=== PATIENT | male | born 1945 | race Caucasian/White ===

== ENCOUNTER 2017-11-02 23:12 | Observation (INO) | payer OTHER, BC ==
--- OUTSIDE RECORDS SUMMARY | 2017-11-02 23:15 | XMS REPORT | Clinical Summary ---
:1945 Author Organization [facility] Address [address] [place] [address] Care Team Providers Name Role Phone Cayden Myers MD Primary Care Provider Allergies No Known Allergies Current Medications Prescription Sig. Disp. Refills Start Date End Date Status lisinopril TK T PO 0 03/13/2016 Active (PRINIVIL,ZESTRIL) 10 BID. MG tablet multivitamin with Take 1 Active minerals tablet tablet by mouth daily. ascorbic acid, vitamin Take 1,000 Active C, (vitamin C) 1000 MG mg by mouth tablet daily. metoprolol succinate XL TK 1 T PO D 1 07/28/2016 Active (TOPROL-XL) 25 mg 24 hr tablet cholecalciferol, Take 2,000 Active vitamin D3, (VITAMIN Units by D3) 2,000 unit capsule mouth daily. capsule aspirin (ECOTRIN) 81 MG Take 81 mg Active enteric coated tablet by mouth daily. predniSONE (DELTASONE) Take 1 30 tablet 2 09/09/2017 Active 10 mg tablet tablet (10 8 mg total) by mouth daily for 90 days. methotrexate 2.5 MG Take 8 96 tablet 0 09/09/2017 Active tablet tablets (20 9 mg total) by mouth once a week. fluticasone (FLONASE) 2 sprays 16 g 3 10/13/2017 Active 50 mcg/actuation nasal (100 mcg 9 spray total) by Each Nare route daily. montelukast (SINGULAIR) Take 10 mg Active 10 mg tablet by mouth nightly. folic acid (FOLVITE) 1 Take 1 90 tablet 1 04/30/2016 MG tablet tablet (1 mg 7 total) by mouth daily. methotrexate 2.5 MG Take 8 24 tablet 5 10/01/2016 Discontinued tablet tablets (20 7 mg total) by mouth once a week. hydroxychloroquine Take 1 60 tablet 2 10/01/2016 Discontinued (PLAQUENIL) 200 mg tablet (200 7 tablet mg total) by mouth 2 (two) times a day for 90 days. hydroxychloroquine TAKE 1 60 tablet 2 12/18/2016 Discontinued (PLAQUENIL) 200 mg TABLET(200 7 tablet MG) BY MOUTH TWICE DAILY methotrexate 2.5 MG TAKE 8 24 tablet 0 02/12/2017 Discontinued tablet TABLETS BY 7 MOUTH ONCE A WEEK methotrexate 2.5 MG TAKE 8 24 tablet 5 03/05/2017 Discontinued tablet TABLETS BY 7 MOUTH ONCE A WEEK hydroxychloroquine TAKE 1 60 tablet 2 03/12/2017 Discontinued (PLAQUENIL) 200 mg TABLET(200 7 tablet MG) BY MOUTH TWICE DAILY hydroxychloroquine TAKE 1 60 tablet 2 06/12/2017 Discontinued (PLAQUENIL) 200 mg TABLET(200 8 tablet MG) BY MOUTH TWICE DAILY methotrexate 2.5 MG TAKE 8 24 tablet 1 07/11/2017 Discontinued tablet TABLETS BY 8 MOUTH ONCE A WEEK methotrexate 2.5 MG TAKE 8 24 tablet 0 08/20/2017 Discontinued tablet TABLETS BY 8 MOUTH ONCE A WEEK FLUVIRIN [id number] ADM 0.5ML IM 0 08/09/2017 Discontinued mcg (15 mcg x 3)/0.5 mL UTD 8 suspension PREVNAR 13, PF, 0.5 mL ADM 0.5ML IM 0 08/09/2017 Discontinued vaccine UTD 8 methotrexate 2.5 MG TAKE 8 32 tablet 1 09/11/2017 Discontinued tablet TABLETS BY 8 MOUTH ONCE A WEEK Active Problems Problem Noted Date Rheumatoid arthritis of multiple sites with negative rheumatoid factor 2015 Follow-up examination following treatment with high-risk medication 06/25/2016 Arthritis Hypertension Obesity HL (hearing loss) Encounters Date Type Specialty Care Team Description 10/30/2017 Infusion Rheumatology Olive Urbano Rheumatoid arthritis of MD Nini multiple sites with negative rheumatoid factor (Primary Dx) 10/30/2017 Orders Only Rheumatology Olive Urbano MD 10/27/2017 Orders Only Rheumatology Olive Urbano MD 10/13/2017 Telephone Rheumatology [place], [place] 10/02/2017 Infusion Rheumatology Olive Urbano Rheumatoid arthritis rei Terrazas MD multiple sites with negative rheumatoid factor (Primary Dx) 09/18/2017 Infusion Rheumatology Olive Urbano Rheumatoid arthritis rei Terrazas MD multiple sites with negative rheumatoid factor (Primary Dx) 09/11/2017 Refill Rheumatology Oliev Urbano MD 09/09/2017 Office Visit Rheumatology Olive Urbano Rheumatoid arthritis of multiple sites with negative rheumatoid factor (Primary Dx); MD Nini Follow-up examination following treatment with high-risk medication; Essential hypertension; Proteinuria, unspecified type 09/09/2017 Lab Lab Ari Chavez, Essential hypertension, malignant ( Primary Dx); Shortness of breath 09/09/2017 Orders Only Rheumatology Olive Urbano MD 09/09/2017 Refill Rheumatology [place], [place] 09/09/2017 Orders Only Rheumatology Jae Toro [place] Rheumatoid arthritis of multiple sites without rheumatoid factor (Primary Dx) 08/20/2017 Refill Rheumatology Oilve Urbano MD 07/11/2017 Refill Rheumatology Olive Urbano MD 06/12/2017 Refill Rheumatology Olive Urbano MD 03/11/2017 Refill Rheumatology Olive Urbano MD 03/05/2017 Refill Rheumatology Olive Urbano MD 02/25/2017 Office Visit Rheumatology Olive Urbano Rheumatoid arthritis of multiple sites with negative rheumatoid factor (Primary Dx); MD Nini Essential hypertension; Follow-up examination following treatment with high-risk medication 02/12/2017 Refill Rheumatology Olive Urbano MD 12/18/2016 Refill Rheumatology Olive Urbano MD after 11/01/2016 Family History Medical History Relation Name Comments Rheum arthritis Father Clotting disorder Mother Mary Kidney disease Mother Mary Cancer Sister Clotting disorder Sister No Known Problems Sister Rheum arthritis Sister Arthritis Sister Osiris Cancer Sister Ashley Relation Name Status Comments Father Mother Mary Sister (Age 55) breast cancer Sister Alive Sister Alive Sister Osiris Sister Ashley Social History Tobacco Use Types Packs/Day Years Used Date Former Smoker Cigarettes 2 20 04/11/1964 - 2000 Smokeless Tobacco: Never Used Alcohol Use Drinks/Week oz/Week Comments Yes 3 Glasses of wine 0.6 social Sex Assigned at Date Recorded Not on file Last Filed Vital Signs Vital Sign Reading Time Taken Blood Pressure 123/63 10/30/2017 4:04 PM CDT Pulse 69 10/30/2017 4:04 PM CDT Temperature 36.7 C (98.1 F) 10/30/2017 4:04 PM CDT Respiratory Rate 18 10/30/2017 4:04 PM CDT Oxygen Saturation 98% 10/30/2017 1:05 PM CDT Inhaled Oxygen Concentration - - Weight 108 kg (238 lb) 10/30/2017 12:58 PM CDT Height 177.8 cm (5' 10") 09/18/2017 12:51 PM [employer] Body Mass Index 34.15 10/30/2017 12:58 PM CDT Plan of Treatment Date Type Specialty Care Team Description 12/11/2017 [place] [address] [address] Health Maintenance Due Date Last Done Comments COLONOSCOPY 1996 ZOSTER VACCINE 2006 PNEUMOCOCCAL POLYSACCHARIDE VACCINE AGE 65 AND OVER 2011 PNEUMOCOCCAL-13 2011 INFLUENZA VACCINE 03/11/2017 Results TB GOLD Quantiferon (09/09/2017 3:15 PM) Component Value Ref Range Quantiferon TB gold incubated Incubated, [facility] [place], [place] for completion of the assay. Specimen Performing Laboratory Blood [facility] Narrative Performed at:[address] [place], [place] [id number] Dining Room Hostess: Richard Salas MD, Phone:[phone] TB QuantiFERON In Tube (09/09/2017 3:15 PM) Component Value Ref Range Quantiferon TB gold Negative Negative Quantiferon criteria Comment Comment: To be considered positive a specimen should have a TB Ag minus Nil value greater than or equal to 0.35 IU/mL and in addition the TB Ag minus Nil value must be greater than or equal to 25% of the Nil value. There may be insufficient information in these values to differentiate between some negative and some indeterminate test values. Quantiferon TB Ag value 0.02 IU/mL Quantiferon NIL value 0.03 IU/mL Quantiferon mitogen value 7.92 IU/mL Quantiferon TB Ag minus NIL value <0.00 IU/mL Interpretation Comment Comment: The QuantiFERON TB Gold (in Tube) assay is intended for use as an aid in the diagnosis of TB infection. Negative results suggest that there is no TB infection. In patients with high suspicion of exposure, a negative test should be repeated. A positive test indicates infection with Mycobacterium tuberculosis. Among individuals without tuberculosis infection, a positive test may be due to exposure to M. kansasii, M. szulgai or M. marinum. On the Internet, go to cdc.gov/tb for further details. Specimen Performing Laboratory [facility] Narrative Performed at:[id number] Dining Room Hostess: Jae Wells MD, Phone:[phone] Vectra(R) DA Disease Activity (09/09/2017 3:03 PM) Component Value Ref Range Vectra(R) DA score 39Comment: Report Status: Final Unadjusted Score 44 Test description Comment Comment: Vectra DA measures the concentrations of 12 serum proteins. An algorithm is applied to these concentrations to calculate a quantitative disease activity score ranging from 1 to 100. Test results are intended to aid in the assessment of disease activity in patients with rheumatoid arthritis (RA) when used in conjunction with standard clinical assessment. This test is not intended or validated to diagnose RA. As of July 14, 2017 the Vectra DA score is adjusted based on the age, gender and adiposity of the patient. The unadjusted score is provided for historical comparison. The Vectra DA test is intended for clinical use. [facility]. developed Vectra DA and determined its performance characteristics. The [facility] is certified under the Clinical Laboratory Improvement Amendments of 1988 (CLIA) as qualified to perform high complexity clinical testing and is a [employer] Accredited Laboratory. Unit Aide: Barry Mancini MD; Anne Persaud MD,AP([facility] CLIA No. [id number] Rev L Vectra(R) DA level Moderate Comment: Vectra DA Disease Activity Levels: High: 45 to 100 Moderate: 30 to 44 Low: 1 to 29 Clinical validation Comment Comment: Vectra DA was validated in adults with RA, 230 who previously tested positive for rheumatoid factor (RF) and/or antibodies to cyclic citrullinated peptide (anti-CCP) and 141 who tested negative for both RF and anti-CCP. The performance of the test may differ between these two populations. (Bernardo et al. Arthritis Care Res.2012; 64 (12):5322-2520). The Vectra DA disease activity thresholds shown on the first page of this report reflect the Vectra DA score equivalents to [id number] cut-offs of 2.67 (low to moderate) and 4.09 (moderate to high), respectively (Inoue et al. Michelle. Rheum Dis 2007;66: 407-409), and were calculated by converting the DAS28 scale (0-9.4) to the Vectra DA scale (1 to 100). The Minimally Important Difference (MID) for Vectra DA is the smallest absolute change in score that is likely to reflect change in disease activity. The MID for patients with moderate or high Vectra DA scores is 7.6. As of July 14, 2017 the Vectra DA score is adjusted based on the age, gender and adiposity of the patient. The unadjusted score is provided for historical comparison. Please note: The individual biomarker results, which are expressed to two significant figures, are required inputs into the algorithm used to calculate the Vectra DA Score. Clinical interpretation of individual biomarker levels, which have different weights in the Vectra DA algorithm, has not been established. ZORAIDA result 2.6Comment: RA Range: (0.29-85) ug/mL CRP result 3.2Comment: RA Range: (0.19-92) mg/L VCAM-1 result 0.88Comment: RA Range: (0.39-1.2) ug/mL IL-6 result 21Comment: RA Range: (2.5-200) pg/mL TNF-RI result 2.0Comment: RA Range: (0.8-3.9) ng/mL EGF result 93 pg/mL Comment: RA Range: (12-410) Inversely correlated with disease activity VEGF-A result 200Comment: RA Range: (75-790) pg/mL Leptin result 23Comment: RA Range: (1.5-120) ng/mL Resistin result 6.2Comment: RA Range: (3.5-21) ng/mL MMP-1 result 10Comment: RA Range: (1.3-23) ng/mL MMP-3 result 27Comment: RA Range: (7.9-160) ng/mL YKL-40 result 100Comment: RA Range: (22-540) ng/mL Footnote Comment Comment: RA Range: These 95% reference ranges were established from 325,781 patient samples tested at [facility]. Complete Vectra DA Score History: Collection Date: Score: 55 (unadjusted)* Collection Date: Score: 39 Vectra(R) DA PDF . Specimen Performing Laboratory [facility] Narrative Performed at:[facility] [address] [place], [place] [id number] Dining Room Hostess: Barry Mancini MD, Phone:[phone] CBC with platelet and differential (09/09/2017 3:03 PM)Only the most recent of2 resultswithin the time period is included. Component Value Ref Range WBC 6.0 3.4 - 10.8 x10E3/uL RBC 3.83 (L) 4.14 - 5.80 x10E6/uL HGB 13.0 13.0 - 17.7 g/dL HCT 37.4 (L) 37.5 - 51.0 % MCV 98 (H) 79 - 97 fL MCH 33.9 (H) 26.6 - 33.0 pg MCHC 34.8 31.5 - 35.7 g/dL RDW 14.0 12.3 - 15.4 % Platelet count 238 150 - 379 x10E3/uL Neutrophils 61 Not Estab. % Lymphocytes 22 Not Estab. % Monocytes 10 Not Estab. % Eosinophils 6 Not Estab. % Basophils 1 Not Estab. % Neutrophils, absolute 3.7 1.4 - 7.0 x10E3/uL Lymphocytes, absolute 1.3 0.7 - 3.1 x10E3/uL Monocytes, absolute 0.6 0.1 - 0.9 x10E3/uL Eosinophils, absolute 0.3 0.0 - 0.4 x10E3/uL Basophils, absolute 0.0 0.0 - 0.2 x10E3/uL Immature granulocytes 0 Not Estab. % Immature grans (abs) 0.0 0.0 - 0.1 x10E3/uL Specimen Performing Laboratory [facility] Narrative Performed at:01 - [id number] Dining Room Hostess: Richard Salas MD, Phone:[phone] Creatine kinase, total (CPK) (09/09/2017 3:03 PM) Component Value Ref Range Creatine kinase 75 24 - 204 U/L Specimen Performing Laboratory [facility] Narrative Performed at: [id number] Dining Room Hostess: Richard Salas MD, Phone:[phone] Estimated GFR (09/09/2017 9:55 AM) Component Value Ref Range GFR Non Af Amer 66 mL/min/1.73 m2 GFR Af Amer 80 mL/min/1.73 m2 Comment: Chronic kidney disease: <60 mL/min/1.73m2 Kidney failure: <15 mL/min/1.73m2 The estimated GFR is calculated from the IDMS-traceable Modification of Diet in Renal Disease Equation. The accuracy of the calculation is poor when the creatinine is normal. Calculated values >90 mL/min/1.73m2 are not reported. This equation has not been validated in children (<18 years), women, the elderly (>70 years), or ethnic groups other than Caucasians and Americans. Specimen Performing Laboratory Plasma specimen [facility]PART[facility] OF PATHOLOGY [facility] GENOMIC MEDICINE [address] [place] [id number] Hemoglobin A1c (09/09/2017 9:55 AM) Component Value Ref Range Hemoglobin A1C 5.5 4.0 - 6.0 % Comment: Less than 6% - Goal of therapy for Type II Diabetes Less than 7%-Goal of therapy for Type I Diabetes Less than 8%-Acceptable control for Type I or Type II Diabetes Greater than 8%-Unacceptable control; action indicated. (ADA94) Specimen Performing Laboratory Blood [facility] OF PATHOLOGY AND GENOMIC MEDICINE [address] [place] [address] Lipid panel (09/09/2017 9:55 AM) Component Value Ref Range Cholesterol 171 0 - 199 mg/dL Triglycerides 196 (H) 0 - 149 mg/dL HDL cholesterol 42 40 - 99,999 mg/dL LDL cholesterol 99 0 - 99 mg/dL Lipid panel interpretation See below Comment: Total Cholesterol (mg/dL) <200 Desirable [id number] >=240High Triglycerides (mg/dL) <150 Normal [id number] 200-499High >=500Very high HDL Cholesterol (mg/dL) <40Low (male) <50Low (female) LDL Cholesterol (mg/dL) <100 Optimal 100-129Near or above optimal [phone]-fvyt 160-189High >=190Very high Risk Catergories that modify LDL goals. Risk CatergoriesLDL goal (mg/dL) CHD and CHD risk equivalent<100 (10-year risk >20%) Multiple (2+) risk factors <130 (10-year risk=<20%) 0-1 risk factors <160 (<10-year risk) Defining levels of lipids in metabolic syndrome Triglycerides>=150 mg/dL HDL Cholesterol Men<40 mg/dL Women<50 mg/dL Non-HDL cholesterol is a second target for therapy in persons with high triglycerides (>=200 mg/dL) Specimen Performing Laboratory Plasma specimen [facility] OF PATHOLOGY AND GENOMIC MEDICINE [address] [place] [address] Comprehensive metabolic panel (09/09/2017 9:55 AM)Only the most recent of2 resultswithin the time period is included. Component Value Ref Range Sodium 141 135 - 148 mEq/L Potassium 4.4 3.5 - 5.0 mEq/L Chloride 109 98 - 112 mEq/L CO2 27 24 - 31 mEq/L Anion gap 5 (L) 7 - 15 mEq/L Comment: Starting from November , anion gap calculation no longer incorporates potassium. Please note the change. BUN 15 8 - 23 mg/dL Creatinine 1.1 0.7 - 1.2 mg/dL Glucose 92 65 - 99 mg/dL Calcium 9.2 8.8 - 10.2 mg/dL Protein 6.8 6.3 - 8.3 g/dL Albumin 4.3 3.5 - 5.0 g/dL A/G ratio 1.7 0.7 - 3.8 Alkaline phosphatase 72 40 - 129 U/L AST 22 10 - 50 U/L ALT 18 5 - 50 U/L Total bilirubin 0.5 0.2 - 1.2 mg/dL Specimen Performing Laboratory Plasma specimen [facility]PART[facility] OF PATHOLOGY AND GENOMIC MEDICINE [address] [place] [id number] Sedimentation rate (02/25/2017 2:14 PM) Component Value Ref Range Sedimentation rate 3 0 - 30 mm/hr Specimen Performing Laboratory Blood [facility] Narrative Performed at: - [id number] Dining Room Hostess: Richard Salas MD, Phone:[phone] C-reactive protein (02/25/2017 2:14 PM) Component Value Ref Range CRP 2.0 0.0 - 4.9 mg/L Specimen Performing Laboratory Blood [facility] Narrative Performed at:[id number] Dining Room Hostess: Richard Salas MD, Phone:[phone] after 11/01/2016 Insurance Payer Benefit Plan / Group Subscriber ID Type Phone Address MEDICARE MEDICARE PART A AND B xxxxxxxxxx Medicare [place], [place] BCBS BCBS CHOICE PPO/[employer] PPO xxxxxxxxxxxx PPO [phone] [id number]
[2017-11-03 00:03] LABS: Absolute Lymphocytes (CBC) 1.1 K/uL (0.7-4.9); Absolute Monocytes 0.9 K/uL (0.1-1.3); Absolute Neutrophil 4.5 K/uL (1.8-8.0); Basophils % 0.3 % (0-1.3); Eosinophils % 1.1 % (0-4.4); Hematocrit 38.3 % (39.6-49.0); Lymphocytes % 16.8 % (15.3-44.8); MCH 34.3 pg (27.0-35.0); MCV 99.6 fL (80-100); MPV 7.4 fL (7.6-11.3); Monocytes % 13.8 % (3.3-12.3); RBC Red Blood Cell Count 3.85 M/uL (4.33-5.43)
[2017-11-03 00:05] LABS: Protime INR 0.98
[2017-11-03] MEDS ORDERED: ONDANSETRON 4 MG/2 ML VIAL ONE (00:09)
[2017-11-03 00:16] LABS: Potassium 3.5 mEq/L (3.6-5.0)
[2017-11-03 00:22] LABS: CKMB Creatine Kinase MB 1.7 ng/ml (0.3-4.0)
[2017-11-03 00:23] LABS: Albumin 3.9 g/dL (3.2-5.5); Bilirubin Direct 0.1 mg/dL (0-0.2); Bilirubin Total 0.6 mg/dL (0.3-1.2); Protein, Total 6.4 g/dL (6.0-8.3)
[2017-11-03] MEDS ORDERED: MECLIZINE HCL 12.5 MG TAB ONE (00:28)
[2017-11-03] MEDS ORDERED: NA CHLORIDE 0.9% 1,000 ML ONE (00:29)
--- NOTE | 2017-11-03 00:55 | EDPHYS ---
Physician Documentation [facility] Name: Adrien Amaya Age: 72 yrs Sex: Male : 1945 Arrival Date: 11/02/2017 Time: 23:16 Bed 4 Private MD: ED Physician Michael Tee HPI: 11/03 00:42 This 72 yrs old Male presents to ER via Wheelchair with complaints of pkl Dizziness, Nausea. 00:42 The patient presents with dizziness, feeling off balance. Onset: The symptoms/episode pkl began/occurred just prior to arrival, 1 hour(s) ago. Associated signs and symptoms: Pertinent positives: headache. Historical: - Allergies: 11/02 23: No Known Allergies; fc - Home Meds: 23:26 Remicade 100 mg intravenous solr [Active]; multivitamin oral tab daily [Active]; fc Vitamin D Oral 2000 unit daily [Active]; prednisone 10 mg Oral tab once daily [Active]; loratadine 10 mg oral tab 1 tab once daily [Active]; fluticasone 50 mcg/actuation nasal spsn 1 spray 2 times per day [Active]; Singulair 10 mg Oral tab 1 tab once daily [Active]; - PMHx: 23:26 Rheumatoid Arthritis; Hypertension; fc - PSHx: 23:26 Knee surgery; ankle surg; Appendectomy; fc - Immunization history:: Last tetanus immunization: up to date Flu vaccine is up to date. - Social history:: Smoking status: Patient/guardian denies using tobacco, Patient uses alcohol, occasionally. ROS: 11/03 00:42 Eyes: Negative for injury, pain, redness, and discharge, ENT: Negative for injury, pkl pain, and discharge, Neck: Negative for injury, pain, and swelling, Cardiovascular: Negative for chest pain, palpitations, and edema, Respiratory: Negative for shortness of breath, cough, wheezing, and pleuritic chest pain, Abdomen/GI: Negative for abdominal pain, nausea, vomiting, diarrhea, and constipation, Back: Negative for injury and pain, : Negative for injury, bleeding, discharge, and swelling, MS/Extremity: Negative for injury and deformity, Skin: Negative for injury, rash, and discoloration. Neuro: Positive for gait disturbance, headache. Exam: 00:42 Head/Face: Normocephalic, atraumatic. Eyes: Pupils equal round and reactive to light, pkl extra-ocular motions intact. Lids and lashes normal. Conjunctiva and sclera are non-icteric and not injected. Cornea within normal limits. Periorbital areas with no swelling, redness, or edema. ENT: Nares patent. No nasal discharge, no septal abnormalities noted. Tympanic membranes are normal and external auditory canals are clear. Oropharynx with no redness, swelling, or masses, exudates, or evidence of obstruction, uvula midline. Mucous membranes moist. Neck: Trachea midline, no thyromegaly or masses palpated, and no cervical lymphadenopathy. Supple, full range of motion without nuchal rigidity, or vertebral point tenderness. No Meningismus. Chest/axilla: Normal chest wall appearance and motion. Nontender with no deformity. No lesions are appreciated. Cardiovascular: Regular rate and rhythm with a normal S1 and S2. No gallops, murmurs, or rubs. Normal PMI, no JVD. No pulse deficits. Respiratory: Lungs have equal breath sounds bilaterally, clear to auscultation and percussion. No rales, rhonchi or wheezes noted. No increased work of breathing, no retractions or nasal flaring. Abdomen/GI: Soft, non-tender, with normal bowel sounds. No distension or tympany. No guarding or rebound. No evidence of tenderness throughout. Back: No spinal tenderness. No costovertebral tenderness. Full range of motion. Skin: Warm, dry with normal turgor. Normal color with no rashes, no lesions, and no evidence of cellulitis. MS/ Extremity: Pulses equal, no cyanosis. Neurovascular intact. Full, normal range of motion. 00:42 Neuro: Orientation: is normal, Mentation: is normal, Cranial nerves: grossly normal, Cerebellar function: normal finger to nose testing, heel to mckinley testing is normal, Motor: is normal, Gait: is unsteady. Vital Signs: 11/02 23:13 BP 158 / 87; Pulse 75; Resp 20; Pulse Ox 96% on R/A; Weight 108.86 kg (R); Height 5 ft. fc 10 in. (177.80 cm) (R); Pain 5/10; 23:55 BP 142 / 77; Pulse 73; Resp 18; Pulse Ox 98% on R/A; mt 11/03 00:30 BP 150 / 85; Pulse 72; Resp 24; Pulse Ox 95% on R/A; Pain 0/10; ao 02:08 BP 144 / 77; Pulse 72; Resp 20; Pulse Ox 98% on R/A; mt 11/02 23:13 Body Mass Index 34.44 (108.86 kg, 177.80 cm) MDM: 00:52 Data reviewed: vital signs, nurses notes, lab test result(s), EKG, radiologic studies, pkl CT scan, plain films. 00:54 Patient medically screened. pkl 11/02 23:31 Order name: glucometer results - FOR PT WITH NO ID 11/02 23:37 Order name: Glucose, Ancillary Testing; Complete Time: 00:47 EDMS 11/02 23:40 Order name: Basic Metabolic Panel 11/02 23:40 Order name: BNP 11/02 23:40 Order name: CBC with Diff 11/02 23:40 Order name: Ckmb 11/02 23:40 Order name: CPK 11/02 23:40 Order name: LFT's 11/02 23:40 Order name: Magnesium 11/02 23:40 Order name: PT-INR 11/02 23:40 Order name: Ptt, Activated 11/02 23:40 Order name: Troponin (emerg Dept Use Only) 11/03 00:04 Order name: CBC with Automated Diff; Complete Time: 00:47 EDMS 11/03 00:11 Order name: Protime (+INR); Complete Time: 00:47 EDMS 11/02 23:40 Order name: XRAY Chest (1 view) 11/02 23:40 Order name: EKG; Complete Time: 23:40 11/02 23:40 Order name: Cardiac monitoring; Complete Time: 23:44 11/02 23:40 Order name: EKG - Nurse/Tech; Complete Time: 23:44 11/02 23:40 Order name: CT Head Brain wo Cont 11/03 00:11 Order name: PTT, Activated Partial Thromb; Complete Time: 00:47 EDMS 11/03 00:17 Order name: Basic Metabolic Panel; Complete Time: 00:47 EDMS 11/03 00:18 Order name: Troponin (Emerg Dept Use Only); Complete Time: 00:47 EDMS 11/03 00:21 Order name: BNP B-Type Natriuretic Peptide; Complete Time: 00:47 EDGA 11/03 00:22 Order name: CKMB Creatine Kinase MB; Complete Time: 00:47 EDGA 11/03 00:23 Order name: Liver (Hepatic) Function; Complete Time: 00:47 EDGA 11/03 00:23 Order name: Creatine Phosphokinase; Complete Time: 00:47 EDGA 11/03 00:23 Order name: Magnesium; Complete Time: 00:47 [facility] 11/02 23:40 Order name: IV Saline Lock; Complete Time: 23:44 11/02 23:40 Order name: Labs collected and sent; Complete Time: 23:45 11/02 23:40 Order name: O2 Per Protocol; Complete Time: 23:44 11/02 23:40 Order name: O2 Sat Monitoring; Complete Time: 23:45 kl Administered Medications: 00:07 Drug: Zofran 4 mg Route: IVP; Site: left antecubital; ao 00:20 Follow up: Response: No adverse reaction ao 00:15 Drug: NS 0.9% 1000 ml Route: IV; Rate: 100 ml/hr; Site: left antecubital; ao 00:50 Follow up: IV Status: Order to discontinue infusion ao 00:15 Drug: Antivert 50 mg Route: PO; ao 00:20 Follow up: Response: No adverse reaction ao Point of Care Testing: Blood Glucose: 11/02 23:15 Blood Glucose: 131 mg/dL; fc Ranges: Critical Glucose Levels:Adult <50 mg/dl or >400 mg/dl <40 mg/dl or >180 mg/dl Disposition: 11/03/17 00:54 Hospitalization ordered by Leann Garza for Observation. Preliminary diagnosis is Dizziness. Acute headache. Unsteady gait. - Bed requested for Telemetry/MedSurg (observation). - Status is Observation. ao - Condition is Stable. - Problem is new. - Symptoms are unchanged. UTI on Admission? No Signatures: Dispatcher [employer] Chanel Smalls RN RN kl Lam, Pin, MD MD pkl Chretien, Felicia, RN RN fc Ortiz, Alex, RN RN ao
--- NOTE | 2017-11-03 00:55 | ER ---
Nurse's Notes [facility] Name: Adrien Amaya Age: 72 yrs Sex: Male : 1945 Arrival Date: 11/02/2017 Time: 23:16 Bed 4 Private MD: Diagnosis: Dizziness. Acute headache. Unsteady gait Presentation: 11/02 23:13 Presenting complaint: Patient states: that he has a right sided headache, is weak, fc dizzy and nauseated. 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 States he feels as if he is in a tunnel. No ext weakness or facial drooping noted. Transition of care: patient was not received from another setting of care. Onset of symptoms was November 02, 2017 at 22:15. Care prior to arrival: None. 23:13 Method Of Arrival: Wheelchair 23:13 Acuity: HAYLEY 3 Triage Assessment: 23:43 General: Appears in no apparent distress. comfortable, Behavior is calm, cooperative, ao appropriate for age, Reports fatigue for. GI: Reports nausea. Historical: - Allergies: 23:26 No Known Allergies; - Home Meds: 23:26 Remicade 100 mg intravenous solr [Active]; multivitamin oral tab daily [Active]; Vitamin D Oral 2000 unit daily [Active]; prednisone 10 mg Oral tab once daily [Active]; loratadine 10 mg oral tab 1 tab once daily [Active]; fluticasone 50 mcg/actuation nasal spsn 1 spray 2 times per day [Active]; Singulair 10 mg Oral tab 1 tab once daily [Active]; - PMHx: 23:26 Rheumatoid Arthritis; Hypertension; fc - PSHx: 23:26 Knee surgery; ankle surg; Appendectomy; fc - Immunization history:: Last tetanus immunization: up to date Flu vaccine is up to date. - Social history:: Smoking status: Patient/guardian denies using tobacco, Patient uses alcohol, occasionally. Screenin:13 Abuse screen: Denies threats or abuse. Nutritional screening: No deficits noted. Tuberculosis screening: No symptoms or risk factors identified. Fall Risk None identified. Assessment: 23:30 General: Appears in no apparent distress. comfortable, Behavior is calm, cooperative, ao appropriate for age. Pain: Denies pain. Neuro: Level of Consciousness is awake, alert, obeys commands, Oriented to person, place, time, situation, Appropriate for age Geopolitics Teacher are equal bilaterally Moves all extremities. Gait is steady, Speech is normal, Facial symmetry appears normal, Pupils are PERRLA. Cardiovascular: Capillary refill < 3 seconds Patient's skin is warm and dry. Respiratory: Airway is patent Trachea midline Respiratory effort is even, unlabored, Respiratory pattern is regular, symmetrical, Breath sounds are clear bilaterally. GI: Abdomen is non-distended, Bowel sounds present X 4 quads. : No signs and/or symptoms were reported regarding the genitourinary system. EENT: No signs and/or symptoms were reported regarding the EENT system. Derm: No signs and/or symptoms reported regarding the dermatologic system. Musculoskeletal: Range of motion:. 11/03 00:30 Reassessment: Patient appears in no apparent distress at this time. No changes from ao previously documented assessment. Patient and/or family updated on plan of care and expected duration. Pain level reassessed. Patient is alert, oriented x 3, equal unlabored respirations, skin warm/dry/pink. Patient back from CT. waiting on Ct report. 00:53 Reassessment: At bedside getting patient to ambulate for the second time. Patient ao still weak and unable to ambulate. Dr Tee will admit patient to the hospital. 01:50 Reassessment: Patient appears in no apparent distress at this time. Patient and/or ao family updated on plan of care and expected duration. Pain level reassessed. Patient is alert, oriented x 3, equal unlabored respirations, skin warm/dry/pink. Patient to be admitted. waiting on Dr Hassan admission orders. 02:30 Reassessment: Report called to JACQUELINE Oneill. Nurse stated she will come and get patient. ao Vital Signs: 11/02 23:13 BP 158 / 87; Pulse 75; Resp 20; Pulse Ox 96% on R/A; Weight 108.86 kg (R); Height 5 ft. fc 10 in. (177.80 cm) (R); Pain 5/10; 23:55 BP 142 / 77; Pulse 73; Resp 18; Pulse Ox 98% on R/A; mt 11/03 00:30 BP 150 / 85; Pulse 72; Resp 24; Pulse Ox 95% on R/A; Pain 0/10; ao 02:08 BP 144 / 77; Pulse 72; Resp 20; Pulse Ox 98% on R/A; mt 11/02 23:13 Body Mass Index 34.44 (108.86 kg, 177.80 cm) fc ED Course: 11/02 23:13 No provider procedures requiring assistance completed. fc 23:13 Arm band placed on Patient placed in an exam room, on a stretcher. fc 23:13 Patient has correct armband on for positive identification. Placed in gown. Bed in low fc position. Call light in reach. Side rails up X 1. vehicle monitor technician on. Pulse ox on. NIBP on. 23:16 Patient arrived in ED. es 23:22 EKG done, by ED staff, reviewed by Michael Tee MD. mt 23:23 Triage completed. fc 23:28 Stephen Barrios, RN is Primary Nurse. ao 23:28 Inserted saline lock: 20 gauge in left antecubital area, using aseptic technique. Blood ao collected. 23:45 glucometer results - FOR PT WITH NO ID Sent. ao 23:49 Michael Tee MD is Attending Physician. 11/03 00:20 X-ray completed. Portable x-ray completed in exam room. Patient tolerated procedure kw well. 00:53 Leann Garza MD is Hospitalizing Provider. pkl 02:32 Patient admitted, IV remains in place. ao Administered Medications: 00:07 Drug: Zofran 4 mg Route: IVP; Site: left antecubital; ao 00:20 Follow up: Response: No adverse reaction ao 00:15 Drug: NS 0.9% 1000 ml Route: IV; Rate: 100 ml/hr; Site: left antecubital; ao 00:50 Follow up: IV Status: Order to discontinue infusion ao 00:15 Drug: Antivert 50 mg Route: PO; ao 00:20 Follow up: Response: No adverse reaction ao Point of Care Testing: Blood Glucose: 11/02 23:15 Blood Glucose: 131 mg/dL; fc Ranges: Outcome: 11/03 00:54 Decision to Hospitalize by Provider. pkl 02:31 Admitted to Med/surg accompanied by nurse, accompanied by tech, room 230, Other ao Transported by JACQUELINE Marlow Report called to JACQUELINE Marlow 02:31 Condition: stable 02:31 Instructed on the need for admit. 02:35 Patient left the ED. ao Signatures: Joe, Chanel, RN Michael Lara MD MD pkl Salyer, Edna es Chretien, Felicia RN RN Ruth Roy Alex, RN RN Smitha Flanagan mt
--- NOTE | 2017-11-03 02:16 | P.HP ---
Certification for Inpatient Patient admitted to: Observation With expected LOS: <2 Midnights Practitioner: I am a practitioner with admitting privileges, knowledge of patient current condition, hospital course, and medical plan of care. Services: Services provided to patient in accordance with Admission requirements found in Title 42 Section 412.3 of the Code of Federal Regulations Patient History Date of Service: 11/03/17 Reason for admission: dizziness, headache History of Present Illness: Mr Amaya is a 72 years old male with history of RA, HTN, who came to ED complaining of severe headache. His symptoms started last night about 22:00. Headache was located on the right temporal area, it was pulsatil, 8-9/10 of intensity, associated with nausea and dizziness. The patient and his were concern since his speech was slurred, and he had some trouble to find the words. His symptoms improved in ED after received medication. At my encounter headache and dizziness were resolved, but the slurred speech was still going on. He denied any numbness, tingling or weakness. CT head was remarkable for right side mastoiditis signs. Lab work shows normal WBC count, he was afebrile. Allergies aloe Allergy (Verified 11/03/17 01:56) Itching/Hives/Rash Home Medications: Aspirin [Aspir-Low] 81 mg PO DAILY 11/03/17 Cholecalciferol (Vitamin D3) [Vitamin D3] 2,000 unit PO DAILY 11/03/17 Fluticasone [Flonase 50MCG Nasal [place]*] 1 spray IN DAILY 11/03/17 Folic Acid 2 mg PO DAILY 11/03/17 Lisinopril [Lisinopril] 10 mg PO DAILY 11/03/17 Loratadine [Claritin] 10 mg PO DAILY 11/03/17 Methotrexate Sodium [Methotrexate] 8 tab PO Q7D 11/03/17 Metoprolol Succinate [Metoprolol Succinate] 25 mg PO DAILY 11/03/17 Montelukast [Singulair*] 10 mg PO DAILY 11/03/17 Multivitamin [Multiple Vitamins] 1 each PO DAILY 11/03/17 Prednisone [Deltasone*] 10 mg PO DAILY 11/03/17 Remicade 1 bag IV Q42D 11/03/17 - Past Medical/Surgical History Has patient received pneumonia vaccine in the past: Yes Diabetic: No -: Rheumatoid Arthritis -: Hypertension -: Knee surgery -: Ankle surgery -: Appendectomy - Family History Father -: Hypertension Mother -: Hypertension - Social History Smoking Status: Former smoker Alcohol use: Yes CD- Drugs: No Caffeine use: Yes Place of Residence: Home Review of Systems 10-point ROS is otherwise unremarkable Physical Examination - Physical Exam General: Alert, In no apparent distress HEENT: Atraumatic, PERRLA, Mucous membr. moist/pink, EOMI, Sclerae nonicteric Neck: Supple, 2+ carotid pulse no bruit, No LAD, Without JVD or thyroid abnormality Respiratory: Clear to auscultation bilaterally, Normal air movement Cardiovascular: Regular rate/rhythm, Normal S1 S2 Gastrointestinal: Normal bowel sounds, No tenderness Musculoskeletal: No tenderness, Swelling (bilateral LE 1+) Integumentary: No rashes Neurological: Normal strength at 5/5 x4 extr, Normal tone, Normal affect, Abnormal speech (slurred speech) Lymphatics: No axilla or inguinal lymphadenopathy - Studies Laboratory Data (last 24 hrs) 11/02/17 23:48: PT 11.6, INR 0.98, APTT 25.5 11/02/17 23:48: WBC 6.6, Hgb 13.2 L, Hct 38.3 L, Plt Count 171 11/02/17 23:48: B-Natriuretic Peptide 43 11/02/17 23:48: Sodium 141, Potassium 3.5 L, BUN 17, Creatinine 1.03, Glucose 123 H, Magnesium 2.0, Total Bilirubin 0.6, AST 21, ALT 23, Alkaline Phosphatase 59 Assessment and Plan - Problems (Diagnosis) (1) Dizziness Current Visit: Yes Status: Acute (2) Headache Current Visit: Yes Status: Acute Qualifiers: Headache type: unspecified Headache chronicity pattern: acute headache Intractability: not intractable Qualified Code(s): R51 - Headache (3) Slurred speech Current Visit: Yes Status: Acute (4) HTN (hypertension) Current Visit: Yes Status: Acute Qualifiers: Hypertension type: essential hypertension Qualified Code(s): I10 - Essential (primary) hypertension (5) Rheumatoid arthritis Current Visit: Yes Status: Acute Qualifiers: Rheumatoid arthritis location: unspecified site Rheumatoid factor presence : unspecified presence Qualified Code(s): M06.9 - Rheumatoid arthritis, unspecified - Plan The patient will be admitted to the hospital due to headache and dizziness associated with slurred speech. CT head showed mastoiditis signs. Currently his symptoms are resolved but slurred speech. Will order a brain MRI to role out acute CVA. Consult neurology for evaluation and recommendations. - Advance Directives Does patient have a Living Will: No Does patient have a Durable POA for Healthcare: No - Code Status/Comfort Care Code Status Assessed: Yes Code Status: Full Code
[2017-11-03 02:41] VITALS: O2SAT 98
[2017-11-03] MEDS ORDERED: ACETAMINOPHEN 500 MG TAB PO PRN (02:55)
[2017-11-03] MEDS ORDERED: ONDANSETRON 4 MG/2 ML VIAL IV PRN (02:55)
--- NOTE | 2017-11-03 05:02 | EKG ---
Test Date: 2017-11-02 Test Time: 23:18:58 Resident Buyer: NATHANIEL MEASUREMENT RESULTS: Intervals: Rate: 71 [place]: 172 QRSD: 122 QT: 432 QTc: 469 Regan: P: 85 AZ: 172 QRS: -56 T: 33 INTERPRETIVE STATEMENTS: Sinus rhythm with premature atrial complexes Left anterior fascicular block Left ventricular hypertrophy with QRS widening Abnormal ECG Compared to ECG 03/08/2016 15:43:27 Atrial premature complex(es) now present Left anterior fascicular block now present Left ventricular hypertrophy now present Electronically Signed On 11-03-17 05:01:28 CDT by Omar Rogers
[2017-11-03 06:06] VITALS: BMI 35.0
[2017-11-03 06:08] LABS: Absolute Lymphocytes (CBC) 1.3 K/uL (0.7-4.9); Absolute Monocytes 1.2 K/uL (0.1-1.3); Basophils % 0.2 % (0-1.3); Hematocrit 36.9 % (39.6-49.0); Lymphocytes % 16.9 % (15.3-44.8); MCH 34.1 pg (27.0-35.0); MPV 7.3 fL (7.6-11.3); Monocytes % 15.6 % (3.3-12.3); RBC Red Blood Cell Count 3.62 M/uL (4.33-5.43)
--- NOTE | 2017-11-03 07:32 | RAD REPORT ---
EXAM DESCRIPTION: RAD - Chest Single View - 11/03/2017 12:23 am CLINICAL HISTORY: Right-sided headache, weakness, dizziness, hypertension COMPARISON: February 2016 TECHNIQUE: AP portable chest image was obtained 0009 hours . FINDINGS: No mass, consolidation or failure. Lung markings are prominent but not clearly different f rom prior study. Heart size and vasculature are normal range and similar to the comparison. Bold No m easurable pleural effusion and no pneumothorax. No gross bony abnormality seen. No acute aortic findi ngs suspected. IMPRESSION: No acute cardiopulmonary process. No significant change from comparison.
--- NOTE | 2017-11-03 07:32 | RAD REPORT ---
EXAM DESCRIPTION: CT - Head Brain Wo Cont - 11/03/2017 6:00 am CLINICAL HISTORY: Right-sided headache, weakness, dizziness A preliminary written report was provided at the time of the study, and the report was reviewed prio r to final dictation. COMPARISON: None. TECHNIQUE: Axial 5 mm thick images of the head were obtained without IV contrast. All CT scans are performed using dose optimization technique as appropriate and may include automated exposure control or mA/KV adjustment according to patient size. FINDINGS: No intracranial hemorrhage, mass, edema or shift of mid-line structures. No acute cortical based infarction. No cortical edema or sulcal effacement. Patient has mild atrophy and mild to moder ate chronic ischemic change. No abnormal extra-axial fluid collections. Ventricles are in proportion to volume loss. Arterial and physiologic calcifications are present. Right-sided mastoid air cells are partially opacified. This could be acute or chronic. Left side mast oid air cells are clear. Partially visualized paranasal sinuses show no significant finding. No acute bony findings. IMPRESSION: Mild atrophy and mild to moderate chronic ischemic change. No acute intracranial finding . Partial opacification of the right mastoid air cells. Chronic ischemic changes can mask nonhemorrhagic acute infarction. MR brain followup can be obtained if there is ongoing concern for acute ischemia.
[2017-11-03] MEDS ORDERED: ASPIRIN 81 MG CHEWABLE TABLET PO SCH (09:00)
[2017-11-03] MEDS ORDERED: ENOXAPARIN 40 MG/0.4 ML SQ SCH (09:00)
--- NOTE | 2017-11-03 10:21 | RAD REPORT ---
EXAM DESCRIPTION: MRI - Brain W/Wo Cont - 11/03/2017 10:07 am CLINICAL HISTORY: Slurred speech, weakness, dizziness, suspected CVA COMPARISON: CT head November 03 TECHNIQUE: Sagittal and axial T1-weighted images were obtained. Axial PD/heavily T2-weighted and T2- FLAIR images were obtained along with axial DWI/ADC mapping sequences. Coronal heavily T2 weighted s equence obtained. Axial and coronal post-contrast T1-weighted images were also obtained. A 20 ml ally olinium based contrast volume utilized. FINDINGS: No intracranial hemorrhage, mass or acute infarction. There is no edema or shift of midli ne structures. No extra-axial fluid collections. Valdes-matter/white matter junction is preserved. Sig nal voids are seen as a normal finding in the major intracranial vessels. Scattered mild chronic isch emic changes are present. Mild atrophy changes are present. Ventricular size is in proportion to the amount of volume loss. No brainstem or cerebellum chronic ischemic changes identified. Post-contrast images show normal enhancement. No dural thickening. No globe or orbital content abnormality. No acute paranasal sinus finding. Partial opacification of t he right side mastoid air cells noted matching the CT. IMPRESSION: No infarction or other acute intracranial finding. Mild atrophy and mild to moderate chronic ischemic changes are present.
--- NOTE | 2017-11-03 19:01 | PN ---
Date of Progress Note: 11/03/2017 The patient seen and examined. Chart reviewed and case discussed with RN. Subjective: The patient states that he is feeling better. Pain is improved. No focal weakness. Review of Systems: Negative except as above. Medications: Reviewed. Physical Examination: Vital Signs: Temperature 99.2, heart rate 85, blood pressure 157/76, respirations 16, and O2 92% on room air. General: Awake, alert, oriented x3. No acute distress. Obese male. BMI 35.1. Elderly. CV: S1, S2. No murmurs. Regular rate and rhythm. Peripheral pulses present. Respiratory: Clear to auscultation bilaterally. No wheezing. No stridor. No use of accessory musc les. Gastrointestinal: Abdomen is soft, nontender, nondistended. Positive bowel sounds. Extremities: No clubbing, cyanosis, edema. Skin: No rashes. Neuro: Strength is 5/5 bilateral upper and lower extremities. Sensation intact to light touch. Spe ech is somewhat abnormal, but improving, close to baseline. Laboratory Data: Sodium 141, potassium 4, chloride 111, CO2 of 25, BUN 16, creatinine 0.88, glucose 104, and calcium 8.5. Triglycerides 105, cholesterol 159, LDL 89, and HDL 49. WBC 7.6, H and H are 12.4 and 36.9, platelets 153, neutrophils 66%. MRI of the brain showed no infarction or other acute intracranial finding. Mild atrophy and [id number] chronic ischemic changes are present. Parti al opacification of the right side mastoid air cells noted matching the CT. Assessment And Plan: 1.Dizziness, improving. We will have PT evaluation and have the patient ambulate with assist. Stro ke ruled out. 2.Abnormal speech. MRI is negative for CVA, improving. 3.Headache, non-intractable and acute, improves with pain medication. 4.Essential hypertension, stable. 5.Rheumatoid arthritis, stable. Hold DMARDs for now. Plan: We will continue with PT, OT evaluation. Neurology has been consulted. No acute stroke found . Likely discharge in a.m. if continues to improve. SA/MODL Voice ID: [id number] Report ID: [id number]
[2017-11-03] MEDS ORDERED: ATORVASTATIN 20 MG TAB PO SCH ×2 (21:00→22:00)
--- NOTE | 2017-11-04 01:27 | CON ---
Reason For Consultation: Consultation called because of possible stroke or TIA. History Of Present Illness: Mr. Amaya is a 72-year-old right-handed patient with rheumatoi d arthritis, hypertension, who just began Remicade actually had 3 doses when after the third dose, be roselia to develop severe headache. This was right-sided in the head, along with dizziness, slurred spee ch, and trouble getting his thoughts and words together. He came in to [facility] on the and had head CT scan that was negative for any acute ischemic or hemorrhagic change. Chronic smal l vessel ischemic disease was not actually identified. He said his symptoms actually began to resolv e after several hours and within 24 hour period, he had resolved his slurred speech and was back to h is baseline except that there is a persistent headache in the right posterior head and temporal regio n. He was admitted and had a brain MRI, which was negative for any acute ischemic or hemorrhagic str aquiles. There was [id number] chronic small vessel ischemic disease identified. The patient said he was on aspirin on a daily basis at 81 mg, was not taking statin, and was on an YOLA inhibitor at [facility] along with folic acid. Past Medical History: Includes hypertension, rheumatoid arthritis, vitamin D deficiency. Allergies: ALOE CAUSES ITCHING AND HIVES. Medications At Home: Aspirin 81 mg daily, vitamin D 2000 units international units daily, Flonase as needed, folate 2 mg daily, lisinopril 10 mg daily, Claritin 10 mg daily, methotrexate daily, metopro lol 25 mg daily,Singulair 10 mg daily, multivitamin daily, prednisone 10 mg daily, Remicade 1 bag IV every 42 days. Family History: Positive for hypertension in mother and father. Social History: He smoked in the past. No current smoking and currently uses alcohol. Past Surgical History: Knee surgery, ankle surgery, and appendectomy. Review of Systems: He reports some generalized achiness plus some fatigue since being on the Remicade. He has had low-g rade fevers. No chills. No rigors. No stiff neck. No liat myalgias. There was some mild arthral gias and other than mentioned in terms of his speech and some difficulty getting words out, no other deficits. Physical Examination: Vital Signs: Blood pressure 140/68, down to 87/64, pulse of 87, respiratory rate of 16, temperature 100.1. General: Mr. Amaya is resting in bed. He reports mild distress due to a headache rated up to about 8/10. HEENT: Otherwise, he is normocephalic, atraumatic. Sclerae anicteric. Oropharynx is moist and pink . Neck: Supple. Chest: Clear. Heart: Regular. Extremities: Show no edema or cyanosis. Neurologic: Alert, oriented to situation, place, and person. Follows commands appropriately. Crani al nerves 2 through are intact. Motor in upper and lower extremities intact proximally and distally. Sensory exam, he has a mild stocking-glove loss, light touch temperature but intact 1+ reflexes in upper and lower extremities. Intact coordination in upper and lower extremities. He has good gait. Good stance and stride. Laboratory Studies: Complete blood count with differential shows mildly low hemoglobin of 12.4, samuel tocrit 36.9, platelets normal 133, white blood cell count normal at 7.6. INR 0.98. His basic metabo lic panel is normal. Liver function studies are normal. Cholesterol panel shows like triglycerides 105, cholesterol 159. HDL is 49, LDL is 89. Assessment: Mr. Amaya is a 72-year-old patient with possible transient [facility] and while using aspirin. He has a persistent headache at this point. Plan: 1.We will start Topamax 25 mg at night. 2.We will add Plavix to aspirin 75 mg plus 81 mg. 3.The patient should be on high dose statin to reduce the LDL to less than 70. 4.He should continue with hydration. Follow up with his roller cleaner and discuss use of Remicade or potentially if there is an option for another medication. 5.Once the patient is afebrile, he should be able to be discharged home in the morning. The patient does have some low blood pressure and we would recommend that he perhaps receive some IV fluids over night and if stable with blood pressure and afebrile, may be discharged in the morning. AYAKA/CHRISTIANE Voice ID: [id number] Report ID: [id number]
[2017-11-04 05:16] LABS: Absolute Lymphocytes (CBC) 0.9 K/uL (0.7-4.9); Absolute Monocytes 1.2 K/uL (0.1-1.3); Absolute Neutrophil 4.7 K/uL (1.8-8.0); Basophils % 0.6 % (0-1.3); Eosinophils % 0.8 % (0-4.4); Hematocrit 36.9 % (39.6-49.0); Lymphocytes % 13.6 % (15.3-44.8); MCH 33.7 pg (27.0-35.0); MCV 100.6 fL (80-100); MPV 7.5 fL (7.6-11.3); Monocytes % 17.6 % (3.3-12.3); RBC Red Blood Cell Count 3.67 M/uL (4.33-5.43)
[2017-11-04 05:40] LABS: Potassium 4.1 mEq/L (3.6-5.0)
[2017-11-04 07:12] LABS: Platelet Estimate ADEQ
[2017-11-04 07:13] LABS: Blood Morphology Comment NOT SEEN (NOT SEEN)
[2017-11-04] MEDS ORDERED: predniSONE 10 MG TAB PO SCH (09:00)
[2017-11-04] MEDS ORDERED: FOLIC ACID 1 MG TABLET PO SCH (09:00)
[2017-11-04] MEDS ORDERED: VITAMIN D 1000 UNIT TAB PO SCH (09:00)
[2017-11-04] MEDS ORDERED: CLOPIDOGREL 75 MG TABLET PO SCH (09:00)
[2017-11-04] MEDS ORDERED: LORATADINE 10 MG TAB PO SCH (09:00)
[2017-11-04] MEDS ORDERED: FLUTICASONE 50MCG NASAL SPRAY NAS SCH (09:00)
[2017-11-04] MEDS ORDERED: MONTELUKAST 10 MG TAB PO SCH (09:00)
[2017-11-04 09:18] VITALS: BP 119/68; TEMP 97.4
[2017-11-04] MEDS ORDERED: TOPIRAMATE 25 MG TAB PO SCH (21:00)
--- NOTE | 2017-11-05 03:46 | DS ---
Date of Discharge: 11/04/2017 Consultants: Dylan Pearl M.D. with Neurology. Admitting Diagnoses: 1.Dizziness. 2.Headache. 3.Slurred speech. 4.Essential hypertension. 5.Rheumatoid arthritis. Discharge Diagnoses: 1.Dizziness, improved, possible transient ischemic attack. 2.Abnormal speech, MRI negative for cerebrovascular accident, possible transient ischemic attack. 3.Headache, not retractable, acute. The patient started on Topamax. 4.Essential hypertension. 5.Rheumatoid arthritis. Hospital Course: The patient is a 72-year-old male, who was admitted to the hospital due to dizzines s and headache. The patient had a head CT scan done, which showed right-sided mastoiditis. White co unt was normal. He was afebrile. The patient also had some abnormal speech, and a stroke was suspec nancy. The patient was started on CVA guidelines. MRI of the brain was done. A lipid panel was obtai arnold, which showed elevated LDL above 70. The patient's MRI showed no acute CVA, did show mild atroph y, mild to moderate chronic ischemic changes. The patient was seen by Dr. Pearl with Neurology, w ho recommended adding Plavix to patient's regimen. Topamax was also added for his headache. His sta tin dose was increased to improve his LDL to less than 70. The patient was able to ambulate and did well with physical therapy. He did not require any skilled physical therapy. The patient's dizzines s resolved. His headache improved with Topamax. The patient's speech also normalized. The patient was then cleared for discharge from Neurology standpoint and was discharged home in a stable conditio n. Activity: As tolerated. Medications: As per medication reconciliation list. Diet: Heart healthy. Followup: Follow up with primary care physician in 2-3 days. Follow up with neurologist, Dr. Alejandre ll in 2 weeks. Return to ER for worsening condition. Physical Examination: General: Awake, alert, oriented, no acute distress. CV: S1, S2. Regular rate and rhythm. Peripheral pulses present. Respiratory: Clear to auscultation bilaterally. No wheezing. Abdomen: Soft, nontender, and nondistended. Positive bowel sounds. Extremities: No clubbing, cyanosis, or edema. Neuro: Cranial nerves 2 through 12 are intact grossly. No focal neurological deficit. Speech is no rmal. /CHRISTIANE Voice ID: [id number] Report ID: [id number]
== END 2017-11-04 11:20 | disposition home or self-care (01) ==
LOC: ER 23:12 → ERHOLD 11-03 00:54 → 2ND 11-03 02:14
PROVIDERS: ADMIT Internal Medicine; ATTEND Internal Medicine
DX: R42 Dizziness and giddiness (principal); R51 Headache; R47.81 Slurred speech; I10 Essential (primary) hypertension; M06.9 Rheumatoid arthritis, unspecified; Z87.891 Personal history of nicotine dependence; E66.9 Obesity, unspecified; Z68.35 Body mass index [BMI] 35.0-35.9, adult; Z79.82 Long term (current) use of aspirin
CPT/HCPCS: 36415 ×2; 70450; 70553; 71045; 80048 ×3; 80061 ×2; 80076; 82550; 82553; 82962; 83735; 83880; 84484; 85025 ×3; 85610; 85730; 93005; 96361; 96374; 97116; 97163; 99285; A9577; G0378 ×2; J1650; J2405; J7030